=== PATIENT | male | born 1990 | race Caucasian/White ===

== ENCOUNTER 2021-10-05 10:41 | Emergency (ER) | payer SELFPAY ==
--- NOTE | ~2021-10-05 | XR_ITS ---
EXAMINATION: XR finger 2nd LT min 2V DATE: 10/05/2021 11:27 INDICATION: Left hand second digit injury. TECHNIQUE: 3 views of left hand second digit were obtained. COMPARISON: None. FINDINGS: Bone alignment is normal. No fracture. Joint spaces are well maintained. There is a lacerat ion of dorsal aspect of proximal second digit. IMPRESSION: 1. No fracture. Reviewed, dictated and finalized at location B. OL CROSSING GUARD IMPRESSION: 1. No fracture.
[2021-10-05 11:02] VITALS: BP 166/114; PULSE 70; RESP 20; TEMP 36.2; O2SAT 99
--- NOTE | 2021-10-05 11:05 | ED.WOUNDLAC ---
HPI - Wound/Laceration General Chief Complaint: Wound/Laceration Stated Complaint: nicked finger with a chainsaw Time Seen by Provider: 10/05/21 11:06 Source: patient Mode of arrival: ambulatory Limitations: no limitations History of Present Illness HPI narrative: 31-year-old man comes in today complaining of laceration of his left index finger that occurred while he was using a chain saw this morning. He states that his finger feels funny but he has no numbness. He is able to move without difficulty. He does not recall his last tetanus shot. Onset (ago): hour(s) (1) Extremity Location: Left: hand (Index finger) Place: home Patient tetanus UTD: No Context: accidental Associated symptoms: pain Treatments prior to arrival: bandage Review of Systems Review of Systems: All systems reviewed & are unremarkable except as noted in HPI and below Gastrointestinal: Gastrointestinal: Denies nausea and Denies vomiting Integumentary/Breasts: Skin/Breast: Denies pruritus, Denies erythema and Denies rash Neurologic: Denies syncope Hematologic/Lymphatic: Hematologic/Lymphatic: Denies easy bleeding and Denies easy bruising PMFSH Social History Social History (Updated 10/05/21 @ 12:24 by Ray Collado MD) Smoking status: Never smoker Alcohol intake: current Alcohol use details: Occasion Substance use: current Substance use type: marijuana Other substance usage details: Occasional Living arrangements: with family Exam Const: General: healthy appearing and alert Orientation/consciousness: patient oriented x3 Limitations: no limitations Other: [id number] acute distress. Resp: Effort & Inspection: normal respiratory effort and not labored Auscultation: clear to auscultation bilaterally, no rales, no rhonchi and no wheezes Cardio: Rate: regular rate Rhythm: regular rhythm Heart sounds: no murmurs Skin: General skin exam: normal color, no jaundice and no pallor Rashes: no rashes Other: 2 cm parallel lacerations on the dorsal/radial left index finger between the MCP and PIP. Patient has normal extension to challenge in both superficialis and profundus tendons. Distal neurovascular exam is intact. Neuro: General: patient oriented x3, moves all extremities, no focal motor deficits and CN's II-XI intact bilaterally Speech: normal speech Gait exam (Neuro): Normal gait present Extrem: General: normal to inspection and no clubbing, cyanosis or edema Psych: Appearance: grossly normal and well kempt Mental Status: mental status grossly normal Affect: normal affect Attitude: cooperative Thought content: Yes Normal thought content present Course Vital Signs Vital signs: Vital Signs Temperature 36.2 C L 10/05/21 11:02 Pulse Rate 70 10/05/21 11:02 Respiratory Rate 20 10/05/21 11:02 Blood Pressure 166/114 H 10/05/21 11:02 Pulse Oximetry 99 10/05/21 11:02 Temperature 36.2 C L 10/05/21 11:02 Pulse Rate 70 10/05/21 11:02 Respiratory Rate 20 10/05/21 11:02 Blood Pressure 166/114 H 10/05/21 11:02 Pulse Oximetry 99 10/05/21 11:02 Procedures Laceration Laceration 1: Date: 10/05/21 Time: 12:27 Site: hand Side (If applicable): left Size (cm): 2 Description: flap and irregular Depth: simple, single layer Local Anesthetic: lidocaine 1% Amount of anesthesia used (mL): 4 Pre-repair: wound explored, irrigated extensively and deep structures intact ====== Skin Level ====== Skin layer closed with: nylon Size (cm): 5-0 Number of sutures: 5 Technique: simple, interrupted ====== Subcutaneous Layer ====== ====== Muscle Layer ====== ====== Tendon Layer ====== Laceration 2: Date: 10/05/21 Time: 12:28 Site: hand Side (If applicable): left Size (cm): 2 Description: irregular and other (Tissue loss) Depth: simple, single layer
[2021-10-05] MEDS: TETANUS,DIPHTHERIA,AC PERTUSSIS ADULT 0.5 ML (ADACEL) IM (11:21)
[2021-10-05 12:35] VITALS: BP 156/106; PULSE 78; RESP 20; O2SAT 98
== END 2021-10-05 13:00 | disposition home or self-care (01) ==
PROVIDERS: Emergency Provider Emergency Medicine
DX: S61.211A Laceration without foreign body of left index finger without damage to nail, initial encounter (principal); W27.0XXA Contact with workbench tool, initial encounter
CPT/HCPCS: 12002; 73140; 90471; 90715; 99283

== ENCOUNTER 2023-01-05 17:22 | Outpatient (CLI) | payer BC, SELFPAY ==
--- NOTE | ~2023-01-05 | XR_ITS ---
Right foot Technique: AP, oblique, and lateral views were obtained. Clinical History: Pain Findings: No acute fracture or dislocation is seen. Mild hallux valgus noted. Joint spaces are preser ashley without erosive or degenerative change. Soft tissues are unremarkable. Impression: No fracture or dislocation. Mild hallux valgus. Reviewed, dictated and finalized at location . [employer] DEPARTMENT CLINICIAN Impression: No fracture or dislocation. Mild hallux valgus.
[2023-01-05 17:41] LABS: Basophils Absolute Auto 0.11 K/mm3 (0.00-0.10); Basophils Percent Auto 1.1 % (0.0-1.0); Eosinophils Absolute Auto 0.48 K/mm3 (0.02-0.50); Eosinophils Percent Auto 4.6 % (1.0-6.0); Hematocrit 45.2 % (40.0-54.0); Hemoglobin 14.8 g/dL (14.0-18.0); Immature Granulocyte Absolute 0.02 K/mm3 (0.00-0.00); Immature Granulocyte Percent A 0.2 % (0.0-0.0); Lymphocytes Absolute Auto 3.13 K/mm3 (1.10-4.50); Lymphocytes Percent Auto 30.1 % (18.0-42.0); Mean Corpuscular HGB Conc 32.7 g/dL (32.0-36.0); Mean Corpuscular Hemoglobin 29.8 pg (27.0-31.0); Mean Corpuscular Volume 91.1 fL (78.0-102.0); Mean Platelet Volume 10.7 fl (8.7-11.0); Monocytes Absolute Auto 0.93 K/mm3 (0.10-0.90); Monocytes Percent Auto 8.9 % (2.0-11.0); Neutrophils Absolute Auto 5.7 K/mm3 (1.7-7.2); Neutrophils Percent Auto 55.1 % (50.0-70.0); Platelet Count Result 322 K/mm3 (150-420); Red Blood Count 4.96 M/mm3 (4.70-6.10); Red Cell Distribution Width 12.5 % (11.6-14.4); White Blood Count 10.4 K/mm3 (4.8-10.8)
[2023-01-05 18:23] LABS: Alanine Aminotransferase 71 U/L (16-63); Albumin Level 3.9 g/dL (3.4-5.0); Alkaline Phosphatase 80 U/L (46-116); Anion Gap 9 mmol/L (8-16); Aspartate Amino Transferase 33 U/L (15-37); Bilirubin,Total 0.5 mg/dL (0.00-1.00); Blood Urea Nitrogen 14 mg/dL (7-18); Calcium 8.9 mg/dL (8.5-10.1); Carbon Dioxide 29 mmol/L (21-32); Chloride 103 mmol/L (98-108); Estimated Glomerular Filt Rate > 60; Glucose 96 mg/dL (70-99); Osmolality Calculated 292 mOsm/kg (285-295); Potassium 4.3 mmol/L (3.5-5.1); Sodium 141 mmol/L (136-145); Uric Acid 6.1 mg/dL (3.5-7.2)
[2023-01-05 18:25] LABS: CRP < 0.5 mg/dL (0.0-0.9)
== END 2023-01-05 17:23 | disposition home or self-care (01) ==
LOC: CHSLAB 17:27
PROVIDERS: PCP Internal Medicine; Visit Provider Internal Medicine
DX: M10.9 Gout, unspecified (principal); M20.11 Hallux valgus (acquired), right foot
CPT/HCPCS: 36415; 73630; 80053; 84550; 85025; 86140